=== PATIENT | female | born 2005 | race Hispanic/Latino ===

== ENCOUNTER 2024-09-07 22:47 | Inpatient (IN) | payer OTHER ==
[~2024-09-07] VITALS: Ht 160 cm; Wt 70.5 kg
[2024-09-07] MEDS ORDERED: NORT0.5T2 PO (23:34)
[2024-09-08 00:31] LABS: AMPHETAMINES LEVEL URINE NEGATIVE (NEGATIVE); BARBITURATES URINE NEGATIVE (NEGATIVE); BENZODIAZEPINES URINE NEGATIVE (NEGATIVE); CANNABINOIDS URINE NEGATIVE (NEGATIVE); COCAINE METABOLITE URINE NEGATIVE (NEGATIVE); METHADONE URINE NEGATIVE (NEGATIVE); OPIATES URINE NEGATIVE (NEGATIVE); PHENCYCLIDINE URINE NEGATIVE (NEGATIVE)
[2024-09-08 00:32] LABS: HEMATOCRIT 38.1 % (36.0-47.0); HEMOGLOBIN 13.2 g/dl (12.0-15.5); MEAN CORPUSCULAR HEMOGLOBIN 31.8 pg (27.0-33.0); MEAN CORPUSCULAR HGB CONC 34.6 g/dl (32.0-36.5); MEAN CORPUSCULAR VOLUME 91.8 fl (80.0-96.0); PLATELET COUNT, AUTOMATED 314 10^3/uL (150-450); RED BLOOD COUNT 4.15 10^6/uL (4.00-5.40); WHITE BLOOD COUNT 7.9 10^3/uL (4.0-10.0)
[2024-09-08 00:33] LABS: ETHYL ALCOHOL (ETHANOL) 0.177 % (0.000-0.010)
[2024-09-08 00:34] LABS: SALICYLATE LEVEL < 3.0 MG/DL (<30)
[2024-09-08 00:35] LABS: ALKALINE PHOSPHATASE 57 U/L (35-104); ALT/SGPT 15 U/L (7.0-40); AST/SGOT 13 U/L (<34); BILIRUBIN,DIRECT < 0.1 MG/DL (<0.4); BILIRUBIN,TOTAL 0.2 MG/DL (0.3-1.2); BLOOD UREA NITROGEN 10 MG/DL (9-23); CALCIUM LEVEL 9.4 MG/DL (8.5-10.1); CARBON DIOXIDE LEVEL 22 MMOL/L (20-31); CHLORIDE LEVEL 108 MMOL/L (98-107); CREATININE FOR GFR 0.56 MG/DL (0.55-1.30); GLUCOSE, FASTING 97 MG/DL (60-100); POTASSIUM SERUM 3.8 MMOL/L (3.5-5.1); SODIUM LEVEL 144 MMOL/L (136-145); TOTAL PROTEIN 7.5 G/DL (5.7-8.2)
[2024-09-08 00:37] LABS: THYROID STIMULATING HORMONE 0.729 uIU/ML (0.48-4.17)
[2024-09-08] MEDS ORDERED: HOME MED LIST COMPLETE! XX SCH (02:00)
[2024-09-08] MEDS ORDERED: MOM 30ML SUSPENSION UDC PO PRN (11:05)
[2024-09-08] MEDS ORDERED: diphenhydrAMINE 25MG CAP PO PRN (11:05)
[2024-09-08] MEDS ORDERED: IBUPROFEN 400MG TAB PO PRN (11:05)
[2024-09-08] MEDS ORDERED: traZODone 50 MG TAB PO PRN (11:05)
[2024-09-08] MEDS ORDERED: MAALOX 30 ML SUSP *UDC PO PRN (11:05)
[2024-09-08 12:41] VITALS: BP 123/70; TEMP 97.8; O2SAT 100
[2024-09-08 14:47] VITALS: BP 129/66; TEMP 98.2; O2SAT 100
[2024-09-08] MEDS: ACETAMINOPHEN 325 MG TAB PO PRN (17:43)
== END 2024-09-09 13:07 | disposition home or self-care (01) | DRG 881 ==
LOC: M ED 22:47 → M ED INP 09-08 11:05 → M PSY 09-08 12:41
PROVIDERS: ADMIT Psychiatry & Neurology Psychiatry; ATTEND Psychiatry & Neurology Psychiatry
DX: F32.A Depression, unspecified (principal); F43.23 Adjustment disorder with mixed anxiety and depressed mood; N91.3 Primary oligomenorrhea; Z79.890 Hormone replacement therapy; Z79.899 Other long term (current) drug therapy; Z91.51 Personal history of suicidal behavior; Z56.2 Threat of job loss; Z63.9 Problem related to primary support group, unspecified; Z59.9 Problem related to housing and economic circumstances, unspecified